=== PATIENT | male | born 1975 | race Two or more races ===

== ENCOUNTER 2018-07-12 09:04 | Inpatient (IN) | payer BC, OTHER ==
[~2018-07-12] VITALS: Ht 152.4 cm; Wt 63.4 kg
[2018-07-12] MEDS ORDERED: SODIUM CHLORIDE 0.9% 1,000 ML IV ONE (09:54)
[2018-07-12] MEDS ORDERED: IOHEXOL 300 MG/ML 100ML BOTTLE IJ ONE (09:59)
[2018-07-12 10:11] LABS: Urine Bacteria NONE SEEN /hpf (None Seen); Urine Blood Negative /uL (Negative); Urine Mucus FEW (None Seen); Urine Specific Gravity 1.024 (1.001-1.035); Urine WBC 1 /hpf (0 - 3)
[2018-07-12 10:30] LABS: Basophils # (auto) 0.1 uL; Mean Corpuscular Hgb Conc. 35.2 g/dL (32.0-36.0)
[2018-07-12 10:32] LABS: Basophils % (auto) 0.6 % (0.0-2.0); Eosinophils # (auto) 0.1 uL; Eosinophils % (auto) 0.4 % (0.0-7.0); Hematocrit 42.6 % (41.0-53.0); Lymphocytes # (auto) 1.7 uL; Lymphocytes % (auto) 11.4 % (10.0-50.0); Mean Corpuscular Hemoglobin 32.1 pg (28.0-32.0); Mean Corpuscular Volume 91.3 fL (80.0-100.0); Monocytes % (auto) 6.8 % (0.0-12.0); Neutrophils # (auto) 11.8 uL; Neutrophils % (auto) 80.8 % (37.0-80.0); Nucleated Red Blood Cells % 0.1 %; Platelet Count (auto) 507 10^3/uL (140-450); Red Blood Cells 4.66 10^6/uL (4.5-5.90); White Blood Cell 14.6 10^3/uL (4.4-10.8)
[2018-07-12 10:44] LABS: Albumin 2.9 g/dL (3.4-5.0); BUN/Creatinine Ratio 12.5; Calcium 9.2 mg/dL (8.5-10.1); Potassium 3.4 mmol/L (3.5-5.1)
[2018-07-12 10:47] LABS: INR 0.95 (0.9-1.15); Partial Thromboplastin Time 31.6 sec (23.78-33.04); Prothrombin Time 10.2 sec (9.27-12.13)
[2018-07-12 10:58] LABS: Total Protein 8.9 g/dL (6.4-8.2)
[2018-07-12] MEDS ORDERED: metroNIDAZOLE 500MG/100ML 100 ML IV ONE (11:45)
[2018-07-12] MEDS ORDERED: PIPERACILLIN-TAZOB 3.375GM 100 ML IV ONE (11:45)
[2018-07-12] MEDS ORDERED: LORazepam 0.5 MG TAB PO PRN (12:30)
[2018-07-12] MEDS ORDERED: NITROGLYCERIN 0.4 MG SL TAB SL PRN (12:30)
[2018-07-12] MEDS ORDERED: MORPHINE SULF INJ 2 MG/ML SYRINGE 1ML IV PRN ×2 (12:30)
[2018-07-12] MEDS ORDERED: HYDROcodone-ACET 5/325MG TAB PO PRN (12:30)
[2018-07-12] MEDS ORDERED: ACETAMINOPHEN 500 MG TAB PO PRN (12:30)
[2018-07-12] MEDS ORDERED: TEMAZEPAM 15 MG CAP PO PRN (12:30)
[2018-07-12] MEDS ORDERED: PROMETHAZINE HCL 25 MG/ML 1ML IV PRN (12:30)
[2018-07-12] MEDS ORDERED: CLINDAMYCIN 900MG IV 50 ML IV ONE (14:30)
[2018-07-12] MEDS ORDERED: POLYETHYLENE (14:54)
[2018-07-12] MEDS ORDERED: LACT10SO60 (14:54)
[2018-07-12] MEDS ORDERED: LEVOFLOXACIN 500MG 100 ML IV ONE (15:30)
[2018-07-12 17:00] VITALS: BP 112/63
[2018-07-12] MEDS: SOD CHL 0.9%/ KCL 20MEQ 1,000 ML IV SCH (17:13)
[2018-07-12] MEDS: CLINDAMYCIN 600MG IV 50 ML IV SCH (21:33)
[2018-07-12 21:49] VITALS: BP 107/66
[2018-07-13] MEDS: SOD CHL 0.9%/ KCL 20MEQ 1,000 ML IV SCH ×3 (00:06→11:27)
[2018-07-13 04:53] VITALS: BP 104/61
[2018-07-13] MEDS: CLINDAMYCIN 600MG IV 50 ML IV SCH (05:27)
[2018-07-13 07:15] LABS: Basophils # (auto) 0.1 uL; Basophils % (auto) 0.5 % (0.0-2.0); Eosinophils # (auto) 0.1 uL; Eosinophils % (auto) 0.8 % (0.0-7.0); Hemoglobin 13.5 g/dL (13.5-17.5); Lymphocytes # (auto) 2.2 uL; Lymphocytes % (auto) 17.2 % (10.0-50.0); Mean Corpuscular Hemoglobin 32.1 pg (28.0-32.0); Mean Corpuscular Hgb Conc. 34.6 g/dL (32.0-36.0); Mean Corpuscular Volume 92.7 fL (80.0-100.0); Monocytes # (auto) 0.8 uL; Monocytes % (auto) 6.5 % (0.0-12.0); Neutrophils # (auto) 9.8 uL; Nucleated Red Blood Cells % 0.1 %; Platelet Count (auto) 449 10^3/uL (140-450); Red Blood Cells 4.21 10^6/uL (4.5-5.90); Red Cell Distribution Width 12.8 % (11.8-14.3)
[2018-07-13 07:49] LABS: Calcium 8.4 mg/dL (8.5-10.1); Potassium 3.9 mmol/L (3.5-5.1)
[2018-07-13 07:53] LABS: Albumin 2.3 g/dL (3.4-5.0); BUN/Creatinine Ratio 14.9
[2018-07-13 07:56] LABS: Bilirubin, Total 0.7 mg/dL (0.2-1.0); Total Protein 7.4 g/dL (6.4-8.2)
[2018-07-13 08:59] VITALS: BP 104/65
[2018-07-13] MEDS: LEVOFLOXACIN 500MG 100 ML IV SCH (09:43)
[2018-07-13] MEDS: metroNIDAZOLE 500MG/100ML 100 ML IV SCH ×2 (11:27→17:55)
[2018-07-13 12:21] VITALS: BP 104/67
[2018-07-13 16:54] VITALS: BP 106/70
[2018-07-13 22:15] VITALS: BP 102/69
[2018-07-14] MEDS: SOD CHL 0.9%/ KCL 20MEQ 1,000 ML IV SCH ×3 (00:24→17:26)
[2018-07-14] MEDS: metroNIDAZOLE 500MG/100ML 100 ML IV SCH ×4 (00:25→17:26)
[2018-07-14 03:56] LABS: Basophils # (auto) 0.1 uL; Basophils % (auto) 0.8 % (0.0-2.0); Eosinophils # (auto) 0.2 uL; Eosinophils % (auto) 1.8 % (0.0-7.0); Hematocrit 43.2 % (41.0-53.0); Hemoglobin 14.4 g/dL (13.5-17.5); Lymphocytes # (auto) 2.8 uL; Lymphocytes % (auto) 28.5 % (10.0-50.0); Mean Corpuscular Hemoglobin 31.3 pg (28.0-32.0); Mean Corpuscular Hgb Conc. 33.4 g/dL (32.0-36.0); Mean Corpuscular Volume 93.8 fL (80.0-100.0); Monocytes # (auto) 0.7 uL; Monocytes % (auto) 6.6 % (0.0-12.0); Neutrophils # (auto) 6.2 uL; Neutrophils % (auto) 62.3 % (37.0-80.0); Platelet Count (auto) 469 10^3/uL (140-450); Red Cell Distribution Width 12.8 % (11.8-14.3); White Blood Cell 9.9 10^3/uL (4.4-10.8)
[2018-07-14 04:16] LABS: BUN/Creatinine Ratio 13.9; Calcium 8.5 mg/dL (8.5-10.1); Potassium 4.2 mmol/L (3.5-5.1)
[2018-07-14 05:24] VITALS: BP 114/71
[2018-07-14 09:00] VITALS: BP 120/67
[2018-07-14] MEDS: LEVOFLOXACIN 500MG 100 ML IV SCH (10:56)
[2018-07-14 13:00] VITALS: BP 122/76
[2018-07-14 17:00] VITALS: BP 141/96
[2018-07-14 22:00] VITALS: BP 104/67
[2018-07-15] MEDS: metroNIDAZOLE 500MG/100ML 100 ML IV SCH ×4 (00:12→18:22)
[2018-07-15] MEDS: SOD CHL 0.9%/ KCL 20MEQ 1,000 ML IV SCH ×3 (03:15→23:15)
[2018-07-15 06:02] VITALS: BP 96/65
[2018-07-15 08:28] LABS: Basophils # (auto) 0.1 uL; Eosinophils # (auto) 0.2 uL; Lymphocytes # (auto) 2.4 uL; Neutrophils # (auto) 5.7 uL; Nucleated Red Blood Cells % 0.1 %; Red Cell Distribution Width 12.8 % (11.8-14.3)
[2018-07-15 08:30] VITALS: BP 102/73
[2018-07-15 08:31] LABS: Basophils % (auto) 0.9 % (0.0-2.0); Eosinophils % (auto) 1.8 % (0.0-7.0); Hematocrit 47.4 % (41.0-53.0); Hemoglobin 15.9 g/dL (13.5-17.5); Lymphocytes % (auto) 27.3 % (10.0-50.0); Mean Corpuscular Hgb Conc. 33.5 g/dL (32.0-36.0); Mean Corpuscular Volume 92.5 fL (80.0-100.0); Monocytes # (auto) 0.4 uL; Monocytes % (auto) 4.8 % (0.0-12.0); Neutrophils % (auto) 65.2 % (37.0-80.0); Platelet Count (auto) 638 10^3/uL (140-450); Red Blood Cells 5.13 10^6/uL (4.5-5.90); White Blood Cell 8.7 10^3/uL (4.4-10.8)
[2018-07-15] MEDS: LEVOFLOXACIN 500MG 100 ML IV SCH (09:54)
[2018-07-15 12:51] VITALS: BP 117/77
[2018-07-15 17:23] VITALS: BP 110/74
[2018-07-15 20:00] VITALS: BP 103/68
[2018-07-15 22:00] VITALS: BP 103/68
[2018-07-16] MEDS: metroNIDAZOLE 500MG/100ML 100 ML IV SCH ×3 (00:08→12:00)
[2018-07-16 05:10] VITALS: BP 101/62
[2018-07-16 08:51] VITALS: BP 104/63
[2018-07-16] MEDS: LEVOFLOXACIN 500MG 100 ML IV SCH (11:01)
[2018-07-16] MEDS: SOD CHL 0.9%/ KCL 20MEQ 1,000 ML IV SCH (11:01)
[2018-07-16 13:00] VITALS: BP 106/64
[2018-07-16 14:24] VITALS: BP 104/63
== END 2018-07-16 15:30 | disposition home or self-care (01) | DRG 872 ==
LOC: ER 09:06 → TELE 09:07 → TELE-CENTR 14:20 → CENTRAL 07-13 17:00
PROVIDERS: ADMIT Internal Medicine; ATTEND Internal Medicine
DX: A41.9 Sepsis, unspecified organism (principal); K57.20 Diverticulitis of large intestine with perforation and abscess without bleeding; E87.1 Hypo-osmolality and hyponatremia; E86.0 Dehydration; E88.09 Other disorders of plasma-protein metabolism, not elsewhere classified; E87.6 Hypokalemia; K57.30 Diverticulosis of large intestine without perforation or abscess without bleeding
CPT/HCPCS: 36415; 74177; 80048; 80053; 81001; 82150; 83690; 84132; 85025; 85610; 85652; 85730; 87040; 96361; 96365; 96367; J1956; J2543; J3490

== ENCOUNTER 2020-10-26 11:47 | Inpatient (IN) | payer BC ==
[~2020-10-26] VITALS: Ht 152.4 cm; Wt 66.7 kg
[~2020-10-26 11:47] MED LIST: LACT10SO60; POLYETHYLENE
[2020-10-26] MEDS ORDERED: SODIUM CHLORIDE 0.9% 500 ML IVB ONE (12:30)
[2020-10-26 12:55] LABS: Basophils # (auto) 0.1 10 ^3/uL (0-0.2); Basophils % (auto) 0.9 % (0.0-2.0); Eosinophils # (auto) 0 10 ^3/uL (0-0.8); Eosinophils % (auto) 0.2 % (0.0-7.0); Hematocrit 47.4 % (41.0-53.0); Hemoglobin 16.5 g/dL (13.5-17.5); Lymphocytes # (auto) 2.7 10 ^3/uL (0.4-5.4); Lymphocytes % (auto) 16.5 % (10.0-50.0); Mean Corpuscular Hemoglobin 32.2 pg (28.0-32.0); Mean Corpuscular Hgb Conc. 34.8 g/dL (32.0-36.0); Mean Corpuscular Volume 92.4 fL (80.0-100.0); Monocytes # (auto) 1.3 10 ^3/uL (0-1.3); Monocytes % (auto) 7.8 % (0.0-12.0); Neutrophils % (auto) 74.6 % (37.0-80.0); Nucleated Red Blood Cells % 0.4 %; Platelet Count (auto) 399 10^3/uL (140-450); Red Blood Cells 5.13 10^6/uL (4.5-5.90); White Blood Cell 16.1 10^3/uL (4.4-10.8)
[2020-10-26] MEDS ORDERED: MORPHINE SULFATE 4 MG/ML SYR/VIAL IV ONE (13:00)
[2020-10-26] MEDS ORDERED: ONDANSETRON HCL 4 MG/2 ML VIAL IV ONE (13:00)
[2020-10-26] MEDS ORDERED: metroNIDAZOLE 500MG/100ML 100 ML IV ONE (13:00)
[2020-10-26] MEDS ORDERED: SODIUM CHLORIDE 0.9% 1,000 ML IV ONE (13:00)
[2020-10-26 13:13] LABS: Albumin 3.5 g/dL (3.4-5.0); Calcium 9.3 mg/dL (8.5-10.1); Potassium 3.7 mmol/L (3.5-5.1)
[2020-10-26 13:17] LABS: Bilirubin, Total 1.6 mg/dL (0.2-1.0); Total Protein 9.3 g/dL (6.4-8.2)
[2020-10-26] MEDS ORDERED: NITROGLYCERIN 0.4 MG SL TAB SL PRN (16:00)
[2020-10-26] MEDS ORDERED: MORPHINE SULF INJ 2 MG/ML SYRINGE 1ML IV PRN ×2 (16:00)
[2020-10-26] MEDS ORDERED: ONDANSETRON HCL 4 MG/2 ML VIAL IV PRN (16:00)
[2020-10-26] MEDS: D5W/SOD CHL 0.45%/KCL 20MEQ 1,000 ML IV SCH ×2 (20:53→23:39)
--- NOTE | 2020-10-26 21:07 | NUR ---
MS admit from ER GAVIN SHARMA H admitted to tele/MS after NO SBAR received. Patient oriented to Santos miller RN, [facility] unit, 271 room, B bed, and unit policies regarding patient care and visiting hours. Patient weighed by bed scale and encouraged to call if they need something. All questions and concerns addressed, patient verbalized understanding.
[2020-10-26 21:33] VITALS: BP 123/81
[2020-10-26 21:40] VITALS: BP 123/81
[2020-10-26] MEDS: PIPERACILLIN-TAZO 4.5GM 100 ML IV SCH (23:36)
[2020-10-27 05:00] VITALS: BP_SYST 115; BP_SYST 74; BP_DIAS 71
[2020-10-27] MEDS: PIPERACILLIN-TAZO 4.5GM 100 ML IV SCH ×3 (05:42→21:41)
--- NOTE | 2020-10-27 07:30 | NUR ---
Opening Shift Note Report received and Assumed care of patient,asleep easily arousable, alert and oriented. No S/S of distress/SOB or pain. Instructed on POC,call light within reach,patient reminded instructed to call for assistance,verbalized understanding,will continue to monitor for changes Q1hr and PRN.
[2020-10-27 08:30] VITALS: BP 90/56
[2020-10-27 09:20] LABS: Basophils # (auto) 0 10 ^3/uL (0-0.2); Basophils % (auto) 0.3 % (0.0-2.0); Eosinophils # (auto) 0.1 10 ^3/uL (0-0.8); Eosinophils % (auto) 0.5 % (0.0-7.0); Lymphocytes % (auto) 15.7 % (10.0-50.0); Mean Corpuscular Hemoglobin 31.6 pg (28.0-32.0); Mean Corpuscular Hgb Conc. 34.1 g/dL (32.0-36.0); Mean Corpuscular Volume 92.8 fL (80.0-100.0); Monocytes % (auto) 8.2 % (0.0-12.0); Neutrophils # (auto) 9.5 10 ^3/uL (1.6-8.6); Neutrophils % (auto) 75.3 % (37.0-80.0); Nucleated Red Blood Cells % 0.1 %; Platelet Count (auto) 367 10^3/uL (140-450); Red Blood Cells 4.41 10^6/uL (4.5-5.90); Red Cell Distribution Width 12.9 % (11.8-14.3); White Blood Cell 12.6 10^3/uL (4.4-10.8)
[2020-10-27 09:34] LABS: Partial Thromboplastin Time 31.5 sec (23.0-31.2)
--- NOTE | 2020-10-27 09:45 | NUR ---
Urine specimen sent to lab for study
[2020-10-27 09:53] LABS: Albumin 2.8 g/dL (3.4-5.0); BUN/Creatinine Ratio 10.6; Bilirubin, Total 1.6 mg/dL (0.2-1.0); Calcium 8.3 mg/dL (8.5-10.1); Potassium 3.4 mmol/L (3.5-5.1); Total Protein 7.4 g/dL (6.4-8.2)
[2020-10-27] MEDS: ENOXAPARIN SOD 40 MG/0.4 ML SYRINGE SC SCH (09:59)
[2020-10-27 10:55] LABS: Urine Bacteria NONE SEEN /hpf (None Seen); Urine Blood Negative /uL (Negative); Urine Specific Gravity 1.013 (1.001-1.035); Urine WBC <1 /hpf (0 - 3)
--- NOTE | 2020-10-27 11:45 | NUR ---
MD VISIT DR. Harley ZABALA HERE TO SEE AND EXAMINED PATIENT,EXPLAIN PLAN OF CARE AND TREATMENT,RECEIVED ORDER FOR PICC LINE INSERTION.
[2020-10-27] MEDS: FOLIC ACID 1 MG, MULTIPLE VITAMIN 10 ML, MAGNESIUM SULF SDV 50% 8 MEQ, THIAMINE INJ 100... INJ SCH ×5 (12:21)
[2020-10-27 13:00] VITALS: BP 121/80
--- NOTE | 2020-10-27 13:15 | NUR ---
PICC LINE CONSENT SIGNED BY PATIENT
--- NOTE | 2020-10-27 14:10 | NUR ---
SPOKE TO [facility] PICC LINE RN CALLED MADE AWARE OF PICC LINE ORDER
--- NOTE | 2020-10-27 16:00 | NUR ---
[facility] PICC LINE RN CALLED STATED UNABLE TO PUT PICC LINE TODAY
[2020-10-27 17:00] VITALS: BP 125/88
--- NOTE | 2020-10-27 19:40 | NUR ---
Opening Shift Note Assumed care of patient, awake and alert, oriented x 4, follows direction. On room air with even and unlabored respirations. Ambulates independently with steady gait. No S/S of distress/SOB or pain. Bed low locked position with side rails up x 2 and call light within reach. Instructed on POC and to call for assist PRN, will continue to monitor for changes Q1hr and PRN.
[2020-10-27] MEDS: D5W/SOD CHL 0.45%/KCL 20MEQ 1,000 ML IV SCH (21:41)
[2020-10-27 22:00] VITALS: BP 125/84
[2020-10-28] MEDS: PIPERACILLIN-TAZO 4.5GM 100 ML IV SCH ×3 (05:47→22:54)
--- NOTE | 2020-10-28 07:00 | NUR ---
Closing Note patient resting in bed with even and unlabored respirations. no s/s of distress. Bed low locked position with side rails up x 2 and call light within reach.
--- NOTE | 2020-10-28 07:20 | NUR ---
Opening Shift Note Assumed care of patient, awake and alert bed is locked and in lowest position , bed rails upx2 , call light is within reach . No S/S of distress/SOB or pain. Instructed on POC and to call for assistance PRN, will continue to monitor for changes Q1hr and PRN.
--- NOTE | 2020-10-28 07:30 | NUR ---
Endorsed care to day shift RN.
[2020-10-28 09:00] VITALS: BP 115/69
[2020-10-28] MEDS: ENOXAPARIN SOD 40 MG/0.4 ML SYRINGE SC SCH (09:30)
[2020-10-28] MEDS: D5W/SOD CHL 0.45%/KCL 20MEQ 1,000 ML IV SCH ×2 (09:45→23:16)
--- NOTE | 2020-10-28 11:26 | NUR ---
Assessment Patient is a 45-year-old male who is alert and oriented. Prior to admission patient lived home with family and functioned independently. Prior to admission patient could care for his own ADLs. Patient will return to his prior living arrangements post discharge and he will transport him self home. Patient informed me he drove himself to the hospital. Advised patient there is a social service consult for IV abx for 2 weeks. Per patient he can be teachable for the IV abx. Informed patient antibiotic is pending and MD will update order on 2019. Informed Patient FRANKIE Ch will complete IV abx. Informed patient he has the right to participate in all discharge planning. Patient does not have an advance directive. Patient has been provided with an advanced directive. Patient verbalized understanding and agrees to discharge plan. Addendum: 10/28/20 at 1128 by JOSE VOGT Amended: Links added.
--- NOTE | 2020-10-28 12:07 | NUR ---
Midline Placement: Patient educated on need for midline placement. All risks and benefits explained and all questions and concerns addresses prior to procedure. 18g/10 cm midline inserted via LEFT CEPHALIC vein using Ultrasound. Sterile technique utilized. Blood return obtained from the single lumen and flushed easily with NS using proper technique. Midline secured with saline lock; biodisc and occlusive dressing applied. Primary RN Peg notified. Midline lot #[id number]
[2020-10-28 13:00] VITALS: BP_SYST 107; BP_SYST 128; BP_DIAS 66; BP_DIAS 69
[2020-10-28] MEDS: FOLIC ACID 1 MG, MULTIPLE VITAMIN 10 ML, MAGNESIUM SULF SDV 50% 8 MEQ, THIAMINE INJ 100... INJ SCH ×5 (13:00)
[2020-10-28 22:00] VITALS: BP 127/77
[2020-10-29] MEDS: D5W/SOD CHL 0.45%/KCL 20MEQ 1,000 ML IV SCH ×2 (04:00→14:00)
[2020-10-29 05:31] VITALS: BP 114/75
[2020-10-29] MEDS: PIPERACILLIN-TAZO 4.5GM 100 ML IV SCH ×2 (06:52→14:00)
[2020-10-29 08:38] LABS: Basophils # (auto) 0.1 10 ^3/uL (0-0.2); Basophils % (auto) 0.5 % (0.0-2.0); Eosinophils # (auto) 0.2 10 ^3/uL (0-0.8); Eosinophils % (auto) 1.9 % (0.0-7.0); Hematocrit 40.5 % (41.0-53.0); Hemoglobin 13.8 g/dL (13.5-17.5); Lymphocytes # (auto) 2.2 10 ^3/uL (0.4-5.4); Lymphocytes % (auto) 19.5 % (10.0-50.0); Mean Corpuscular Hemoglobin 31.7 pg (28.0-32.0); Mean Corpuscular Hgb Conc. 33.9 g/dL (32.0-36.0); Mean Corpuscular Volume 93.3 fL (80.0-100.0); Monocytes # (auto) 0.9 10 ^3/uL (0-1.3); Monocytes % (auto) 7.7 % (0.0-12.0); Neutrophils # (auto) 7.8 10 ^3/uL (1.6-8.6); Neutrophils % (auto) 70.4 % (37.0-80.0); Nucleated Red Blood Cells % 0.1 %; Platelet Count (auto) 401 10^3/uL (140-450); Red Blood Cells 4.34 10^6/uL (4.5-5.90); Red Cell Distribution Width 12.6 % (11.8-14.3); White Blood Cell 11.1 10^3/uL (4.4-10.8)
[2020-10-29 08:44] VITALS: BP 111/73
[2020-10-29] MEDS: ENOXAPARIN SOD 40 MG/0.4 ML SYRINGE SC SCH (10:00)
--- NOTE | 2020-10-29 10:58 | NUR ---
I faxed home IV ATB order to [facility].
--- NOTE | 2020-10-29 11:11 | NUR ---
I received a call from Haylie at [facility] letting me know that she received the faxed information, they are verifying patient's financial information and she will give me a call back. I did let her know that patient is teachable-I asked if they would be able to provide nursing visits to teach family or assist in finding home health agency-she will give me a call back.
[2020-10-29 12:00] VITALS: BP 122/76
[2020-10-29] MEDS: FOLIC ACID 1 MG, MULTIPLE VITAMIN 10 ML, MAGNESIUM SULF SDV 50% 8 MEQ, THIAMINE INJ 100... INJ SCH ×5 (12:00)
--- NOTE | 2020-10-29 13:46 | NUR ---
I received a call from Haylie at [facility] letting me know that she spoke with patient and he can't afford the [id number] for the home IV ATB. I called nurse Peg and made her aware. I called [facility] [employer] Christine and left message asking if patient has SNF benefit-awaiting return call. I called Dr. Harley Humphrey and made him aware. I called Haylie at [facility] and updated her as well.
--- NOTE | 2020-10-29 14:00 | NUR ---
I received a call from nurse Peg letting me know that she spoke with Dr. Kate who provided her with a prescription for patient to go home on oral ATB.
--- NOTE | 2020-10-29 16:54 | NUR ---
Discharge instructions given as ordered. Encourage to follow up with PMD as instructed. All questions and concerns addressed. Patient verbalized understanding. Medication reconciliation form completed and copy given to patient. IV removed with catheter intact, pressure dressing applied. Patient ambulated to vehicle with all personal belongings, accompanied by staff . No distress noted at time of departure.
== END 2020-10-29 16:50 | disposition home or self-care (01) | DRG 872 ==
LOC: ER 11:47 → OVERFLOW 15:54 → WEST WING 21:00
PROVIDERS: ADMIT Nurse Practitioner Acute Care; ATTEND Family Medicine
PROC: 05HF33Z Insertion of Infusion Device into Left Cephalic Vein, Percutaneous Approach (ICD-10-PCS; principal; 2020-10-28)
PROC: B54NZZA Ultrasonography of Left Upper Extremity Veins, Guidance (ICD-10-PCS; 2020-10-28)
DX: A41.9 Sepsis, unspecified organism (principal); E87.1 Hypo-osmolality and hyponatremia; K57.20 Diverticulitis of large intestine with perforation and abscess without bleeding; E66.9 Obesity, unspecified; K59.00 Constipation, unspecified
CPT/HCPCS: 36415; 74176; 80053; 81001; 85025; 85610; 85730; 87040; G0378; J2543; J3490

== ENCOUNTER 2020-12-26 23:43 | Emergency (ER) | payer BC ==
[~2020-12-26] VITALS: Ht 152.4 cm; Wt 68.0 kg
[2020-12-27] MEDS ORDERED: ACETAMINOPHEN 325 MG TAB PO ONE (01:00)
[2020-12-27 02:55] VITALS: BP 119/84
== END 2020-12-27 03:20 ==
LOC: EDBD 23:43 → ER 23:43
DX: M54.2 Cervicalgia (principal); M54.6 Pain in thoracic spine; V43.52XA Car driver injured in collision with other type car in traffic accident, initial encounter; Y93.89 Activity, other specified; Y92.89 Other specified places as the place of occurrence of the external cause; Y99.8 Other external cause status
CPT/HCPCS: 70450; 71045; 72125